=== PATIENT | female | born 1995 | race Caucasian/White ===

== ENCOUNTER 2016-07-28 16:17 | Outpatient (CLI) | payer MEDICAID | END 2016-07-28 16:18 | disposition home or self-care (01) | DX: Z53.9 Procedure and treatment not carried out, unspecified reason (principal) ==

== ENCOUNTER 2017-04-04 08:00 | Outpatient (CLI) | payer MEDICAID | END 2017-04-04 08:01 | disposition home or self-care (01) | LOC: LAB.R 08:00 | PROVIDERS: ATTEND Obstetrics & Gynecology | DX: Z30.09 Encounter for other general counseling and advice on contraception (principal) | CPT/HCPCS: 87491; 87591 ==

== ENCOUNTER 2017-07-06 08:00 | Outpatient (CLI) | payer MEDICAID, OTHER ==
[2017-07-06 13:33] LABS: HB2 TOTAL 15.8 g/dL; HEMOGLOBIN A1C 0.52 g/dL; HEMOGLOBIN A1C % 5.2 % (4.6-6.2)
== END 2017-07-06 08:01 ==
LOC: LAB.N 08:00
PROVIDERS: ATTEND Nurse Practitioner Family
DX: L83 Acanthosis nigricans (principal)
CPT/HCPCS: 36415; 83036

== ENCOUNTER 2018-04-08 09:30 | Emergency (ER) | payer OTHER ==
[2018-04-08 10:02] LABS: GLUCOSE, URINE (UA) NEGATIVE (NEGATIVE); KETONES,URINE (UA) >=80 mg/dL (NEGATIVE); LEUKOCYTE ESTERASE, URINE NEGATIVE (NEGATIVE); NITRITE,URINE NEGATIVE (NEGATIVE); OCCULT BLOOD,URINE MODERATE (NEGATIVE); PROTEIN,URINE 100 mg/dL (NEGATIVE); UROBILINOGEN,URINE 0.2 (NORMAL) E.U./dL (NORMAL)
[2018-04-08 10:06] LABS: CLARITY,URINE SL. CLOUDY (CLEAR)
[2018-04-08 10:11] LABS: BILIRUBIN,URINE MODERATE (NEGATIVE); HCG UR QUAL NEGATIVE; ICTOTEST,URINE POSITIVE
[2018-04-08 10:15] LABS: BACTERIA,URINE Moderate /HPF (None Seen); SQUAMOUS EPITHELIAL CELL,UR MANY Squamous (<= Few)
--- NOTE | 2018-04-08 10:59 | ED Physician Documentation ---
History of Present Illness - Stated complaint Stated Complaint: FEMALE - Chief complaint Chief Complaint: General - Additonal information Additional information: hx from pt 22 f has mirena IUD LMP just finsihed to ED with vag discomfort worse with urination no fever chils low right back pain no dc concern for UTI or IUD problem Review of Systems Constitutional: denies: Fever, Chills Cardiac: denies: Chest pain / pressure GI: reports: Abdominal Pain (suprapubic) : reports: Vaginal bleeding (LMP just ended), Control (IUD). denies: Discharge, Now EGA Musculoskeletal: reports: Back pain PD PAST MEDICAL HISTORY - Past Medical History Past Medical History: No - Past Surgical History Past Surgical History: No - Present Medications Home Medications: Ambulatory Orders Medication Instructions Recorded Confirmed Albuterol [Ventolin Hfa] 2 puffs INH Q4H PRN #1 inhaler 01/16/15 Azithromycin [Zithromax] 250 mg PO DAILY #4 tablet 01/16/15 Pyrilamine/PE/Dextromethorphan 5 ml PO Q6HR PRN #118 ml 01/16/15 [Codituss Dm Syrup] Phenazopyridine [Pyridium] 100 mg PO Q8H PRN #9 tablet 04/08/18 Sulfamethox/Trimeth 800/160 1 each PO BID #10 tablet 04/08/18 [Bactrim Ds 800/160] - Allergies Allergies/Adverse Reactions: Allergies Allergy/AdvReac Type Severity Reaction Status Date / Time Penicillins Allergy Unknown Unknown Verified 01/15/15 23:58 - Social History Does the pt smoke?: No Smoking Status: Never smoker Does the pt have substance abuse?: No - Immunizations Immunizations are current?: Yes PD ED PE NORMAL - Vitals Vital signs reviewed: Yes - Cardiac Cardiac: RRR - Respiratory Respiratory: No respiratory distress - Abdomen Abdomen: Soft, Other (mild suprapubic TTP no RLQ TTP) - Female Female : Hand Sewer Shoes present (nurse Alyson ; no dc or blood, no IUD string visible or palpable) - Back Back: No CVA TTP - Derm Derm: Normal color - Neuro Neuro: Alert and oriented X 3 Results - Vitals Vitals: Vital Signs - 24 hr 04/08/18 04/08/18 09:45 12:29 Temperature 36.6 C 36.8 C Heart Rate 93 79 Respiratory 20 18 Rate Blood Pressure 130/89 H 119/77 O2 Saturation 100 99 Oxygen O2 Source Room air - Labs Labs: Laboratory Tests 04/08/18 04/08/18 04/08/18 09:54 09:54 11:08 Urine Color YELLOW YELLOW Urine Clarity SL. CLOUDY SL. CLOUDY Urine pH 6.0 6.0 Ur Specific [place] >=1.030 H >=1.030 H >=1.030 H Urine Protein 100 H >=300 H Urine Glucose (UA) NEGATIVE NEGATIVE Urine Ketones >=80 H >=80 H Urine Occult Blood MODERATE H LARGE H Urine Nitrite NEGATIVE NEGATIVE Urine Bilirubin MODERATE H SMALL H Urine Urobilinogen 0.2 (NORMAL) 0.2 (NORMAL) Ur Leukocyte Esterase NEGATIVE NEGATIVE Urine RBC 6-10 H 11-25 H Urine WBC 0-3 4-5 Ur Squamous Epith Cells MANY Squamous H MANY Squamous H Amorphous Sediment Urine Bacteria Moderate H Moderate H Ur Microscopic Review INDICATED INDICATED Urine Culture Comments NOT INDICATED NOT INDICATED Urine HCG, Qual NEGATIVE 04/08/18 12:21 Urine Color YELLOW Urine Clarity SL. CLOUDY Urine pH 6.0 Ur Specific [place] <=1.005 Urine Protein TRACE Urine Glucose (UA) NEGATIVE Urine Ketones 15 H Urine Occult Blood MODERATE H Urine Nitrite NEGATIVE Urine Bilirubin NEGATIVE Urine Urobilinogen 0.2 (NORMAL) Ur Leukocyte Esterase NEGATIVE Urine RBC 11-25 H Urine WBC 0-3 Ur Squamous Epith Cells FEW Squamous Amorphous Sediment Rare Urine Bacteria Moderate H Ur Microscopic Review INDICATED Urine Culture Comments INDICATED Urine HCG, Qual NEGATIVE - Rads (name of study) pelvic sono Radiology: See rad report (IUD mid to upper endometrial canal) PD MEDICAL DECISION MAKING - ED course ED course: took pt several tries to get a clean catch urine - does have + bacteria, small blood likely 2.2 just finished menses, will tx for UTI also did pelvix exam and could not find IUD strings so got sono and it is in the uterus will dc on ab for UTI and fup DIRECTOR OF INSTRUCTION about IUD Departure - Departure Disposition: 01 Home, Self Care Clinical Impression: UTI (urinary tract infection) Qualifiers: Urinary tract infection type: acute cystitis Hematuria presence: with hematuria Qualified Code(s): N30.01 - Acute cystitis with hematuria IUD complication Qualifiers: Device complication type: unspecified Encounter type: initial encounter Qualified Code(s): T83.9XXA - Unspecified complication of genitourinary prosthetic device, implant and graft, initial encounter Condition: Good Instructions: ED UTI Cystitis Female Follow-Up: Jo Ann Reveles ARNP [Primary Care Provider] - Lukasz Perry MD [Provider Admit Priv/Credential] - Prescriptions: Phenazopyridine [Pyridium] 100 mg PO Q8H PRN #9 tablet PRN Reason: Pain Sulfamethox/Trimeth 800/160 [Bactrim Ds 800/160] 1 each PO BID #10 tablet Comments: The last urine sample was a good clean catch and there are bacteria suggesting an infection. Also some blood which is likely either from the infection or from your recent period The IUD string could not be found so we got an ultrasound. The IUD is in the uterus where it belongs. Please follow up with DIRECTOR OF INSTRUCTION about the strings not being able to be felt or seen
[2018-04-08 11:22] LABS: GLUCOSE, URINE (UA) NEGATIVE (NEGATIVE); KETONES,URINE (UA) >=80 mg/dL (NEGATIVE); LEUKOCYTE ESTERASE, URINE NEGATIVE (NEGATIVE); NITRITE,URINE NEGATIVE (NEGATIVE); OCCULT BLOOD,URINE LARGE (NEGATIVE); PROTEIN,URINE >=300 mg/dL (NEGATIVE); UROBILINOGEN,URINE 0.2 (NORMAL) E.U./dL (NORMAL)
[2018-04-08 11:28] LABS: CLARITY,URINE SL. CLOUDY (CLEAR); ICTOTEST,URINE POSITIVE
[2018-04-08 11:29] LABS: BACTERIA,URINE Moderate /HPF (None Seen); BILIRUBIN,URINE SMALL (NEGATIVE); SQUAMOUS EPITHELIAL CELL,UR MANY Squamous (<= Few)
[2018-04-08 12:44] LABS: BILIRUBIN,URINE NEGATIVE (NEGATIVE); GLUCOSE, URINE (UA) NEGATIVE (NEGATIVE); KETONES,URINE (UA) 15 mg/dL (NEGATIVE); LEUKOCYTE ESTERASE, URINE NEGATIVE (NEGATIVE); NITRITE,URINE NEGATIVE (NEGATIVE); OCCULT BLOOD,URINE MODERATE (NEGATIVE); PROTEIN,URINE TRACE mg/dL (NEGATIVE); UROBILINOGEN,URINE 0.2 (NORMAL) E.U./dL (NORMAL)
[2018-04-08 12:47] LABS: CLARITY,URINE SL. CLOUDY (CLEAR)
[2018-04-08 12:48] LABS: HCG UR QUAL NEGATIVE
[2018-04-08 13:04] LABS: AMORPHOUS SEDIMENT,UR Rare /LPF; BACTERIA,URINE Moderate /HPF (None Seen); SQUAMOUS EPITHELIAL CELL,UR FEW Squamous (<= Few)
--- NOTE | 2018-04-08 13:49 | Ultrasound Report ---
Reason: pelvic pain no IUD strings Procedure Date: 04/08/2018 Accession Number: [id number] / [id number] Procedure: US - Pelvic w/Doppler Complete CPT Code: FULL RESULT: EXAM: PELVIC ULTRASOUND EXAM DATE: 04/08/2018 01:21 PM. CLINICAL HISTORY: Pelvic pain. Lost IUD string. COMPARISON: None. TECHNIQUE: Realtime transabdominal pelvic scan performed to identify the uterus and adnexa and as an overview of other pelvic structures, followed by transvaginal scan to provide greater detail of the uterus and adnexa, with static image documentation. FINDINGS: Uterus: 7.0 x 2.8 x 3.4 cm, volume 34.8 cc. Anteverted position. Normal overall size and echotexture. Masses: None. Endometrium: 4 mm. Intrauterine device is seen in the mid to upper endometrial canal. Small amount of fluid and debris is seen adjacent which could represent hemorrhagic material. No internal vascularity. Cervix: Unremarkable. Right Ovary: 3.8 x 2.2 x 2.7 cm, volume 11 cc. Normal echotexture and blood flow. Left Ovary: 2.6 x 1.5 x 2.2 cm, volume 4.4 cc. Normal echotexture and blood flow. Free Fluid: None. Other: None. IMPRESSION: 1. Intrauterine device seen in the mid to upper endometrial canal. Small amount of fluid and echogenic material seen adjacent which may represent hemorrhagic material. 2. Normal ovaries and uterus otherwise. RADIA
[2018-04-08 15:14] VITALS: BP 141/66
== END 2018-04-08 15:14 | disposition home or self-care (01) ==
LOC: ED 09:30
DX: N30.01 Acute cystitis with hematuria (principal); T83.9XXA Unspecified complication of genitourinary prosthetic device, implant and graft, initial encounter
CPT/HCPCS: 76830; 76856; 81001; 81003; 81025; 87086; 87491; 87591; 93975; 99283

== ENCOUNTER 2020-11-10 08:00 | Outpatient (CLI) | payer MEDICAID, OTHER | END 2020-11-10 23:59 | disposition home or self-care (01) | LOC: LAB.N 08:00 | PROVIDERS: ATTEND Physician Assistant Medical | DX: N30.00 Acute cystitis without hematuria (principal) | CPT/HCPCS: 87086; 87181 ==

== ENCOUNTER 2023-05-21 09:56 | Outpatient (CLI) | payer BC ==
[2023-05-21 19:30] LABS: ALBUMIN 4.5 g/dL (3.2-5.5); ALBUMIN/GLOBULIN RATIO 1.3 (1.0-2.2); ALKALINE PHOSPHATASE 90 IU/L (42-121); ALT ALANINE AMINOTRANSFERASE 19 IU/L (10-60); AST ASPARTATE AMINOTRANSFERASE 15 IU/L (10-42); BILIRUBIN,TOTAL 0.7 mg/dL (0.2-1.0); BUN - BLOOD UREA NITROGEN 11 mg/dL (6-20); CALCIUM 9.3 mg/dL (8.5-10.3); CARBON DIOXIDE - CO2 25 mmol/L (21-32); CHLORIDE 105 mmol/L (101-111); CHOL/HDL RATIO 3.2 (<4.4); CHOLESTEROL 158 mg/dL; CREATININE 0.6 mg/dL (0.6-1.3); GFR - MDRD 120 (>89); GLUCOSE 88 mg/dL (74-104); HDL CHOLESTEROL 50 mg/dL; LDL CHOLESTEROL,CALCULATED 89 mg/dL; LDL/HDL RATIO 1.8 (<4.4); POTASSIUM 3.7 mmol/L (3.5-4.5); SODIUM 138 mmol/L (135-145); TOTAL PROTEIN 7.9 g/dL (6.4-8.9); TRIGLYCERIDES 96 mg/dL (48-352); VLDL CHOLESTEROL 19 mg/dL
[2023-05-21 19:42] LABS: THYROID STIMULATING HORMONE 4.07 uIU/mL (0.34-5.60)
[2023-05-21 20:11] LABS: ESTIMATED AVERAGE GLUCOSE 103 mg/dL (70-100); HEMOGLOBIN A1c% 5.2 % (4.27-6.07)
== END 2023-05-21 09:57 | disposition home or self-care (01) ==
LOC: LAB.N 09:56
PROVIDERS: ATTEND Family Medicine
DX: L68.0 Hirsutism (principal); E66.9 Obesity, unspecified
CPT/HCPCS: 36415; 80053; 80061; 83036; 83721; 84403; 84443; 86800

== ENCOUNTER 2023-09-20 08:20 | Outpatient (CLI) | payer BC ==
--- NOTE | 2023-09-20 08:53 | Sleep Patient Instructions ---
Sleep Center Visit Summary - Patient Visit Information Reason for Visit: Initial consult for evaluation of sleep disordered breathing and other sleep issues. - Patient Instructions Instructions Attached: Sleep Study, Sleep Study Home Monitor Additional Instructions: You will be completing a sleep study, either an in-lab polysomnography (PSG) or home sleep study (HST). You will follow-up in the sleep care office after the sleep study is completed to hear the results and talk about therapy, if needed. You will be called by our office staff to schedule this appointment, but you may contact us with any questions. - Clinic Information Contact: [facility] [address] [place] [id number] [email or web address] T: [phone]
[2023-09-20 08:59] VITALS: BP 135/79; O2SAT 97
--- NOTE | 2023-09-20 08:59 | SLEEP CARE CONSULTATION ---
Information from patient questionnaire entered by Dee Barrett. I have reviewed and concur with the information entered by Dee Barrett. This document represents the service I personally performed and the decisions made by me, Amanda Rivera ARNP. History of Present Illness Service Date and Time: 09/20/2023 0820 Reason for Visit: New patient Chief Complaint: reports: Fatigue Date of Onset: STARTED TO NOTICE IN 2021 Usual bedtime: [id number] Time it takes to fall asleep: 30-60MINS Snores at night: Yes Observed to quit breathing while asleep: No Sleeps alone due to snoring: No Number of times waking at night: 1 Reasons for waking at night: reports: Other (UNKNOWN). denies: Choking, Snoring, Gasping for air Toss, Turn, or Twitch while sleeping: Yes Recalls having dreams: Yes Usually gets out of bed at: 0630; weekends 0800 Feels refreshed in the morning: No Morning headache: No Sleepy or fatigued during the day: Yes Ever fallen asleep while driving: No Takes day naps: No Dreams during day naps: No Prior sleep studies: No Additional HPI information: I had the pleasure of seeing SIMI PAVON today regarding the possibility of her having a sleep disorder. Her current complaint is fatigue. She has been experiencing it for a few years now. She has had blood work done by her primary provider and they checked her thyroid levels which are good. She has been diagnosed with PCOS. Her has told her that she snores sometimes but he had not noticed any pauses in breathing. She says that it can be 30-60 minutes to fall asleep. She is taking melatonin 1-2 mg to get to sleep nightly now which helps her fall asleep. She says she normally wakes up around 3-3:30 in the morning for no apparent reason and then goes back to sleep. She is fatigued during the day but denies any unintentional naps. She will take a 10 minute nap during break at work on occasion but normally does not take naps during the day. - Parasomnia Symptoms Ever been unable to move upon waking from sleep: No Walks in sleep: No Talks in sleep: No Ever acted out dreams in sleep: No Ever felt weak in the knees when startled or emotional: No Bothered by creepy, crawly, restless sensations in legs: No Problems with memory or concentration: Yes (some memory loss; occ forgetful) Subjective Initial [place] Sleepiness Scale score: 10 (09/12/2023) Past Medical History Past Medical History: reports: Anxiety, Depression, Other (PCOS) Social History The patient's occupation is a [employer]. Patient is Single and lives in [place]. Have you smoked in the past 12 months: No Alcohol use: No Caffeine use: Yes Caffeine amount and frequency: 1 CAN [place] QAM Family History Family history of sleep disordered breathing: No Allergies and Home Medications Known drug allergies: Yes (PCN) Drug allergies reviewed: Yes Home medication list reviewed: Yes (as listed) Allergy and home medication list: Allergies Penicillins Allergy (Unknown, Verified 09/16/23 09:26) Unknown Home Medications Medication Instructions Recorded Confirmed Last Taken Type Loratadine [Claritin] See Rx Instructions .ROUTE .COMPLEX 09/20/23 09/20/23 Unknown History buPROPion [Wellbutrin Sr] See Rx Instructions .ROUTE .COMPLEX 09/20/23 09/20/23 Unknown History metFORMIN [Glucophage] See Rx Instructions .ROUTE .COMPLEX 09/20/23 09/20/23 Unknown History Review of Systems Weight gain over past 5 years: 30 Cardiovascular: denies: high blood pressure Gastrointestinal: denies: heartburn Neurological: denies: headaches, head trauma Psychiatric: reports: anxiety, depression Ear/Nose/Throat: reports: sinus problems. denies: injury to nose, tonsillectomy Endocrine: reports: sluggishness Physical Exam Vital signs obtained and entered by: DEE Alva MA Blood Pressure: 135/79 (RIGHT ARM) Cuff size: long Heart Rate: 81 O2 Saturation: 97 Height: 4 ft 8 in Weight: 216 lb 6.4 oz Body Mass Index: 48.5 BMI Classification: Morbidly Obese Neck circumference: 18 Mouth and throat: narrow oropharynx Soft palate: long Hard palate: normal Uvula: normal Uvula visualization: 100% Mallampati Class I Tongue: enlarged in size with teeth vuong on lateral edges Tonsils: 3+/kissing Neck: normal w/o lymphadenopathy or thyromegaly Heart: regular rate and rhythm Lungs: clear bilaterally Impression and Plan 1. Suspected Obstructive Sleep Apnea-Hypopnea Syndrome, as suggested by a history of irregular snoring, unrefreshed sleep and cognitive impairment. Narrow oropharynx and obesity are common predisposing factors for obstructive sleep apnea-hypopnea syndrome. I recommend proceeding to polysomnography to confirm the diagnosis and to assess severity. If the patient has significant sleep disordered breathing, a manual CPAP titration study will also be performed to find the optimal treatment pressure. I informed the patient of what the sleep studies involve and after some discussion, obtained agreement to proceed. The pathophysiology of obstructive sleep apnea-hypopnea syndrome was discussed with the patient and health risks of cardiovascular and cerebrovascular disease if not treated. Risks of drowsy driving discussed in detail and patient advised to avoid long distance driving and to taffy puller at the first sign of drowsiness. Patient agreed to plan. * Schedule polysomnography * Avoid long distance driving or driving when feeling sleepy. * Avoid alcohol, sedative and muscle relaxant around bedtime. * Attempt to lose weight. * Review instructions provided by trained office staff on how to prepare for the sleep study. * Return for follow-up after sleep study completed. Counseling Topics: Weight loss health impact Plan: PSG/HST and follow up Visit Type: In Office Time Spent with Patient (minutes): 30 Provider Statement: I spent 100% of the Face to Face Visit with the patient with greater than 50% spent counseling the patient and coordination of care.
== END 2023-09-20 08:21 | disposition home or self-care (01) ==
LOC: SC 08:20
PROVIDERS: ATTEND Nurse Practitioner Family
DX: G47.8 Other sleep disorders (principal); R41.89 Other symptoms and signs involving cognitive functions and awareness; R06.83 Snoring; E66.01 Morbid (severe) obesity due to excess calories; Z68.42 Body mass index [BMI] 45.0-49.9, adult
CPT/HCPCS: 99203; 99212

== ENCOUNTER 2023-12-03 21:48 | Outpatient (CLI) | payer BC, OTHER | END 2023-12-03 21:49 | disposition home or self-care (01) | LOC: SC 21:48 | PROVIDERS: ATTEND Nurse Practitioner Family | DX: R53.83 Other fatigue (principal); R06.83 Snoring; G47.8 Other sleep disorders; E66.01 Morbid (severe) obesity due to excess calories; Z68.45 Body mass index [BMI] 70 or greater, adult | CPT/HCPCS: 95810 ==